=== PATIENT | female | born 1975 | race African-American/Black ===

== ENCOUNTER 2020-07-31 14:07 | Inpatient (IN) | payer OTHER ==
[~2020-07-31] VITALS: Ht 167.6 cm; Wt 79.0 kg
[2020-07-31] MEDS ORDERED: ONDANSETRON HCL 4MG/2ML INJ IV STA (15:09)
[2020-07-31] MEDS ORDERED: PANTOPRAZOLE SODIUM 40 MG/VIAL IV STA (15:09)
[2020-07-31] MEDS ORDERED: FAMOTIDINE 20MG/2ML VIAL IV STA (15:09)
[2020-07-31] MEDS ORDERED: SODIUM CHLORIDE 0.9% 1,000 ML IV ONE (15:15)
[2020-07-31 15:23] LABS: HEMATOCRIT. 40.6 % (36.0-48.0); HEMOGLOBIN. 13.7 g/dL (12.0-16.0); MEAN CORPUSCULAR HEMOGLOBIN 27.9 pg (28.0-32.0); MEAN CORPUSCULAR VOLUME 82.7 fL (81.0-99.0); MEAN PLATELET VOLUME 8.3 fl (7.4-10.4); PLATELET 332 x1000/uL (130-400); RED BLOOD CELL COUNT 4.91 mill/uL (4.2-5.4); RED CELL DISTRIBUTION WIDTH 14.5 % (11.6-14.6)
[2020-07-31 15:24] LABS: CHLORIDE 107 mEq/L (98-107)
[2020-07-31 15:30] LABS: INR 1.1; PROTHROMBIN TIME 11.7 sec (9.6-11.0)
[2020-07-31] MEDS ORDERED: MORPHINE SULFATE 4 MG/ML CPJ (NOT FOR IM USE) IV ONE (15:45)
[2020-07-31 16:13] LABS: PLATELET ESTIMATE NORMAL
[2020-07-31] MEDS ORDERED: VISCOUS LIDOCAINE 2% 15 ML UDC PO STA (17:28)
[2020-07-31] MEDS ORDERED: MAGNESIUM/ALUMINUM HYDROXIDE/SIMETHICONE 30ML UDC PO STA (17:28)
[2020-07-31] MEDS ORDERED: MAGNESIUM/ALUMINUM HYDROXIDE/SIMETHICONE 30ML UDC PO PRN (21:15)
[2020-07-31] MEDS ORDERED: ACETAMINOPHEN 325MG TABLET PO PRN (21:15)
[2020-07-31] MEDS ORDERED: CLONIDINE 0.1MG TABLET PO PRN (21:15)
[2020-07-31] MEDS: AMLODIPINE 10MG TABLET PO SCH (21:30)
[2020-07-31 22:00] VITALS: BP 138/83
[2020-07-31 22:13] VITALS: BP 149/82
[2020-07-31] MEDS: HYDROMORPHONE HCL/PF 2MG/ML CPJ IV PRN (22:24)
[2020-07-31] MEDS: SODIUM CHLORIDE 0.9% 1,000 ML IV SCH (23:39)
[2020-08-01] VITALS (12 sets, daily range): BP systolic 136–166; BP diastolic 73–101
[2020-08-01] MEDS: HYDROMORPHONE HCL/PF 2MG/ML CPJ IV PRN ×3 (02:21→21:25)
[2020-08-01] MEDS: ONDANSETRON HCL 4MG/2ML INJ IV PRN ×2 (02:21→08:28)
[2020-08-01 06:13] LABS: CHLORIDE 105 mEq/L (98-107)
[2020-08-01 06:41] LABS: BASOPHILS % 0.3 % (0.0-2.0); HEMATOCRIT. 39.2 % (36.0-48.0); HEMOGLOBIN. 12.9 g/dL (12.0-16.0); LYMPHOCYTES % 14.5 % (20.0-50.0); MEAN CORPUSCULAR HEMOGLOBIN 27.4 pg (28.0-32.0); MEAN PLATELET VOLUME 8.8 fl (7.4-10.4); MONOCYTES % 8.5 % (2.0-8.0); NEUTROPHILS % 76.7 % (40.0-76.0); PLATELET 311 x1000/uL (130-400); RED BLOOD CELL COUNT 4.72 mill/uL (4.2-5.4); RED CELL DISTRIBUTION WIDTH 14.5 % (11.6-14.6)
[2020-08-01] MEDS: AMLODIPINE 10MG TABLET PO SCH (09:00)
[2020-08-01] MEDS: PANTOPRAZOLE SODIUM 40 MG/VIAL IV SCH (11:08)
[2020-08-01] MEDS: METOCLOPRAMIDE HCL 10MG/2ML VIAL IV SCH ×3 (13:13→23:33)
[2020-08-01] MEDS: SODIUM CHLORIDE 0.9% 1,000 ML IV SCH ×2 (13:21→23:33)
[2020-08-01 19:21] LABS: CLARITY URINE CLOUDY (CLEAR); COLOR URINE YELLOW (YELLOW); KETONES URINE TRACE (NEGATIVE); LEUKOCYTE ESTERASE URINE 2+ (NEGATIVE); NITRITE URINE NEGATIVE (NEGATIVE); OCCULT BLOOD URINE 2+ (NEGATIVE); PROTEIN URINE 1+ (NEGATIVE); SPECIFIC GRAVITY URINE 1.021 (1.005-1.030); UROBILINOGEN URINE 0.2 E.U./dL (0.2-1.0)
[2020-08-02] VITALS (9 sets, daily range): BP systolic 134–164; BP diastolic 66–104
[2020-08-02] MEDS: METOCLOPRAMIDE HCL 10MG/2ML VIAL IV SCH ×4 (05:50→23:03)
[2020-08-02] MEDS: AMLODIPINE 10MG TABLET PO SCH (09:08)
[2020-08-02] MEDS: PANTOPRAZOLE SODIUM 40 MG/VIAL IV SCH ×3 (09:08→20:29)
[2020-08-02 10:14] LABS: HEMOGLOBIN 12.8 g/dL (12.0-16.0); MEAN CORPUSCULAR VOLUME 83.2 fL (81.0-99.0); PLATELET 280 x1000/uL (130-400); RED BLOOD CELL COUNT 4.56 mill/uL (4.2-5.4); RED CELL DISTRIBUTION WIDTH 14.1 % (11.6-14.6)
[2020-08-02 10:27] LABS: CHLORIDE 106 mEq/L (98-107)
[2020-08-02] MEDS ORDERED: ONDANSETRON HCL 4MG/2ML INJ IV PRN (11:00)
[2020-08-02] MEDS ORDERED: ONDANSETRON INJ 8 MG in DEXTROSE 5% WATER 50 ML IV PRN (11:15)
[2020-08-02] MEDS: POTASSIUM CHLORIDE 20MEQ TABLET SR PO SCH (11:49)
[2020-08-02] MEDS: FLUCONAZOLE 100MG TABLET PO SCH (11:49)
[2020-08-02] MEDS: SUCRALFATE 1 G/10 ML UDC PO SCH ×3 (11:49→23:03)
[2020-08-02] MEDS: SODIUM CHLORIDE 0.9% 1,000 ML IV SCH (11:49)
[2020-08-02] MEDS: HYDROMORPHONE HCL/PF 2MG/ML CPJ IV PRN (12:01)
[2020-08-02] MEDS ORDERED: DIPHENHYDRAMINE 25MG CAPSULE PO PRN (19:45)
[2020-08-03] MEDS: SODIUM CHLORIDE 0.9% 1,000 ML IV SCH (01:41)
[2020-08-03 04:00] VITALS: BP 133/83
[2020-08-03] MEDS: SUCRALFATE 1 G/10 ML UDC PO SCH (06:00)
[2020-08-03] MEDS: METOCLOPRAMIDE HCL 10MG/2ML VIAL IV SCH (06:00)
[2020-08-03 06:04] LABS: CHLORIDE 105 mEq/L (98-107)
[2020-08-03 06:48] LABS: BASOPHILS % 0.6 % (0.0-2.0); EOSINOPHILS % 1.3 % (0.0-5.0); HEMATOCRIT. 38.4 % (36.0-48.0); HEMOGLOBIN. 12.9 g/dL (12.0-16.0); LYMPHOCYTES % 24.5 % (20.0-50.0); MEAN CORPUSCULAR HEMOGLOBIN 27.9 pg (28.0-32.0); MONOCYTES % 7.6 % (2.0-8.0); PLATELET 257 x1000/uL (130-400); RED BLOOD CELL COUNT 4.63 mill/uL (4.2-5.4); RED CELL DISTRIBUTION WIDTH 14.1 % (11.6-14.6)
[2020-08-03 08:04] VITALS: BP 158/62
[2020-08-03] MEDS: PANTOPRAZOLE SODIUM 40 MG/VIAL IV SCH (08:11)
[2020-08-03] MEDS: AMLODIPINE 10MG TABLET PO SCH (08:12)
[2020-08-03] MEDS: FLUCONAZOLE 100MG TABLET PO SCH (08:12)
[2020-08-03] MEDS: POTASSIUM CHLORIDE 20MEQ TABLET SR PO SCH (08:12)
[2020-08-03 10:12] VITALS: BP 158/68
== END 2020-08-03 11:30 | disposition home or self-care (01) | DRG 392 ==
LOC: ER 14:22 → 3WST 19:21 → ENRESERV 21:03
PROVIDERS: ADMIT Hospitalist; ATTEND Hospitalist
DX: K52.9 Noninfective gastroenteritis and colitis, unspecified (principal); B37.49 Other urogenital candidiasis; F12.90 Cannabis use, unspecified, uncomplicated; E87.6 Hypokalemia; E86.0 Dehydration; I10 Essential (primary) hypertension
CPT/HCPCS: 36415; 74018; 76700; 80048; 80053; 81003; 83735; 85025; 85027; 93005; 99285; C1893; C9113; J1170; J2270; J2405; J2765; J3490; J7030; Q0163